=== PATIENT | male | born 1990 | race Hispanic/Latino ===

== ENCOUNTER → 2022-09-06 | Outpatient (CLI) | payer OTHER ==
--- NOTE | 2022-09-06 15:07 | DIREP ---
PROCEDURE:XR SPINE CERVICAL 2 OR 3 VIEWS COMPARISON:None. INDICATIONS:M54.2 CERVICAL SPINE PAIN FINDINGS: ALIGNMENT:The dens and lateral masses appear appropriately aligned on the dedicated odontoid view. The dens appears intact. Straightening of the normal cervical lordosis. Vertebral body alignment is maintained. Facet joints appear intact. VERTEBRAE:No compression deformity or acute fracture is identified. DISK SPACES:Disc spaces appear relatively preserved. CERVICAL RIBS:None. OTHER:No prevertebral soft tissue thickening. CONCLUSION: 1. No acute osseous abnormality or vertebral body malalignment. Straightening of the normal cervical lordosis may be positional or related to spasm. 2. Preserved disc spaces. Dictated by: Nathaniel Campbell M.D. On 09/06/2022 at 03:03 PM
--- NOTE | 2022-09-06 15:08 | DIREP ---
PROCEDURE:XRAY SPINE LUMBAR 2-3 VWS COMPARISON:None. INDICATIONS:M54.50 LOW BACK PAIN FINDINGS: ALIGNMENT:No significant scoliosis. Normal lumbar lordosis. Vertebral body alignment is maintained. VERTEBRAE:Partial sacralization of L5 on the left. No compression deformity or acute fracture. DISK SPACES:Mild disc space narrowing at L4-L5. SPONDYLOLISTHESIS:None. SACROILIAC JOINTS:Grossly unremarkable. CONCLUSION: 1. No acute osseous abnormality or vertebral body malalignment. 2. Mild degenerative disc disease at L4-L5. Dictated by: Nathaniel Campbell M.D. On 09/06/2022 at 03:05 PM
== END | disposition home or self-care (01) ==
LOC: RAD 10:29
PROVIDERS: ATTEND Chiropractor
DX: M51.36 Other intervertebral disc degeneration, lumbar region (principal); M48.061 Spinal stenosis, lumbar region without neurogenic claudication; M54.2 Cervicalgia; M54.50 Low back pain, unspecified
CPT/HCPCS: 72040; 72100